=== PATIENT | female | born 1955 | race Caucasian/White ===

== ENCOUNTER 2018-07-15 06:14 | Emergency (ER) | payer SELFPAY ==
[2018-07-15 06:16] VITALS: BP 122/74; PULSE 88; RESP 15; TEMP 36.6; O2SAT 94; BMI 29.0
--- NOTE | 2018-07-15 06:28 | RAD_ITS ---
STUDY: X-RAY CHEST REASON FOR EXAM: Female, 62 years old. Productive cough for 10 days. TECHNIQUE: Frontal and lateral views of the chest. COMPARISON: None. FINDINGS: The lungs are clear and expanded. There is no demonstrated pleural abnormality. Normal size heart. Normal mediastinum and ralph. Normal visualized pulmonary arteries. Normal visualized aortic arch and descending thoracic aorta. There are mild degenerative changes of the visualized thoracic spine. Normal visualized ribs, clavicles, and shoulders. There is no demonstrated abnormality of the visualized soft tissue structures of the upper abdomen. RAD/Chest PA and Lateral IMPRESSION: No evidence for acute cardiopulmonary pathology. Electronically Signed: Tomer Ortiz MD at 7:31 EST , Service support ,
--- NOTE | 2018-07-15 06:41 | ED.VISSUMM ---
- ER Visit Summary Date of Service: 07/15/18 Chief Complaint: Cough History of Present Illness: The patient is a 62 F who presents with a cough. She initially became ill about 10 days ago with cough congestion rhinorrhea. Over the last 4 days she reports subjective fever and chills. She also complains of muscle aches joint aches. Her cough is productive. She denies any shortness of breath or chest pain. She reports nausea without vomiting. No diarrhea. Her son has begun to develop similar symptoms. She is concerned because she had similar symptoms with a pneumonia 1 year ago. Physical Examination: Afebrile vitals normal Moist mucous membranes Heart regular rate and rhythm Patient has rhonchorous breath sounds but no rales no wheezing no increased work of breathing Abdomen soft Alert Test Results: Two-view chest x-ray on my interpretation shows no acute process no focal infiltrate, pneumonia. Emergency Department Course and Treatment: Patient's history examination and findings are consistent with bronchitis. Antibiotics are not indicated at this time. She was instructed on supportive care including anti-inflammatories for muscle and joint aches and honey for cough. She understands to return for new or worsening symptoms and was instructed on signs and symptoms to monitor for. Patient agreeable to this plan and she was discharged. Treatment Plan: [] Disposition: Discharge Impression: Bronchitis This note was generated with [employer] dictation software. It may contain incorrect words, spelling, and punctuation that were not noted in review of the chart prior to signing ED Disposition - Plan for ED Patient: Chief Complaint: General Illness Referrals: Matthew Ma MD [Primary Care Provider] -
--- NOTE | 2018-07-15 07:26 | ED.DEP ---
ED Disposition - Plan for ED Patient: Chief Complaint: General Illness Instructions: Acute Bronchitis Referrals: Matthew Ma MD [Primary Care Provider] -
[2018-07-15 07:30] VITALS: PULSE 86; RESP 18; O2SAT 98
== END 2018-07-15 07:31 | disposition home or self-care (01) ==
LOC: ED 07:29
PROVIDERS: Emergency Provider Emergency Medicine; Family Provider Family Medicine; PCP Family Medicine
DX: J40 Bronchitis, not specified as acute or chronic (principal)
CPT/HCPCS: 71046; 99282

== ENCOUNTER → 2018-10-13 10:37 | Outpatient (CLI) | payer SELFPAY ==
--- NOTE | 2018-10-13 10:40 | BI_ITS ---
MAMMOGRAPHY - BILATERAL SCREENING REASON FOR EXAM: Female, 62 years old. Routine annual screening examination. PERTINENT HISTORY: Non-contributory. Remote left excisional breast biopsy. TECHNIQUE: Digital bilateral breast mayra (3D mammographic acquisition) in the CC and MLO projections. 2-D mediolateral oblique (MLO) and craniocaudad (CC) views of both breasts were obtained. CAD: Full Field Digital Mammography with Computer Added Detection was performed. COMPARISON: No comparison mammograms available at this time. If any prior films become available, an addendum to this report can be generated. FINDINGS: Breast Composition: The breasts are heterogeneously dense, which may obscure small masses. There are no dominant masses or suspicious calcifications. Small benign appearing bilateral axillary lymph nodes. Scattered bilateral microcalcifications. No other significant abnormalities are identified. BI/SCREENING MAMM (CAD), BILAT IMPRESSION: Negative screening mammogram. Yearly followup mammogram recommended. (A) ASSESSMENT CATEGORY: BIRADS Category 2: Benign. A letter regarding these results will be sent to the patient by the facility within 30 days. Approximately 10% of breast cancers are not detected by mammography. A normal mammogram should not delay biopsy of a clinically suspicious abnormality. [id number] Electronically Signed: Gallo Lynn MD at 10:25 EST , Service support ,
== END ==
PROVIDERS: Family Provider Family Medicine; PCP Family Medicine; Referring Provider Registered Nurse; Visit Provider Registered Nurse
DX: Z12.31 Encounter for screening mammogram for malignant neoplasm of breast (principal)
CPT/HCPCS: 77063; 77067